=== PATIENT | female | born 1985 | race Asian ===

== ENCOUNTER 2021-10-27 21:05 | Emergency (ER) | payer BC ==
[~2021-10-27] VITALS: Ht 154.9 cm; Wt 68.0 kg
[2021-10-27 21:30] VITALS: BP 121/79
--- NOTE | 2021-10-27 21:33 | NUR ---
to lobby a/w bed ambulatory
--- NOTE | 2021-10-27 22:20 | NUR ---
seen and examined by Micky
[2021-10-27] MEDS ORDERED: KETOROLAC 60 MG/2 ML VIAL IM ONE (22:35)
[2021-10-27] MEDS ORDERED: cefTRIAXone 1,000 MG in LIDOCAINE MPF 1% 2.1 ML IM ONE (22:35)
[2021-10-27] MEDS ORDERED: cefTRIAXone 1,000 MG VIAL ONE (22:45)
[2021-10-27] MEDS ORDERED: LIDOCAINE MPF 1% 5 ML ONE (22:46)
[2021-10-27] MEDS ORDERED: NAPR-1717 PO (23:00)
[2021-10-27] MEDS ORDERED: NITR100C7 PO (23:00)
[2021-10-27 23:11] VITALS: BP 121/79
--- NOTE | 2021-10-27 23:12 | NUR ---
Patient discharged with v/s stable. Written and verbal after care instructions given and explained. Patient verbalized understanding. Ambulatory with steady gait. All questions addressed prior to discharge. Advised to follow up with PMD.
== END 2021-10-27 23:05 | disposition home or self-care (01) ==
LOC: MED 21:05
DX: N12 Tubulo-interstitial nephritis, not specified as acute or chronic (principal)
CPT/HCPCS: 81002; 81025; 96372; 99284; J0696; J1885; J2001